=== PATIENT | male | born 1955 | race Two or more races ===

== ENCOUNTER 2018-10-23 12:22 | Emergency (ER) | payer OTHER ==
[~2018-10-23] VITALS: Ht 177.8 cm; Wt 66.2 kg
[2018-10-23 12:40] VITALS: BP 150/80
--- NOTE | 2018-10-23 13:53 | Emergency Room Report ---
History of Present Illness General Chief Complaint: Malfunctioning Gastric Tube Source: EMS, Caregiver Present Illness HPI Patient apparently pulled out his PEG tube. A Medina was inserted. He has upper limb spasticity and may have caught the tube in his hand inadvertently. No fevers, vomiting, cough H/O DM H/O trach H/O functional quadriplegia Allergies: Coded Allergies: HEPARIN (Verified Allergy, Unknown, 10/23/18) Patient History Limited by: medical condition Past Medical History: see triage record, DM, HTN Past Surgical History: other - trach/G tube Social History Narrative SNF Reviewed Nursing Documentation: PMH: Agreed; PSxH: Agreed Nursing Documentation-PMH Past Medical History: No History, Except For Hx Hypertension: Yes Hx Diabetes: Yes Review of Systems All Other Systems: limited Physical Exam Vital Signs Date Time Temp Pulse Resp B/P (MAP) Pulse Ox O2 Delivery O2 Flow Rate FiO2 10/23/18 12:24 97.3 78 20 150/80 98 Nasal Cannula 3.0 General Appearance: no apparent distress, other - eyes open, Chronically Ill Eyes: bilateral eye normal inspection, bilateral eye PERRL ENT: moist mucus membranes Neck: tracheotomy Respiratory: chest non-tender, lungs clear, normal breath sounds Cardiovascular #1: regular rate, rhythm Cardiovascular #2: 2+ radial (R) Gastrointestinal: normal inspection, normal bowel sounds, non tender, soft, other - gastrostomy tube site without inflammation Musculoskeletal: other - flexion contractures and atrophy Neurologic: alert - not respond to verbal , motor weakness Psychiatric: other - vegetative state Skin: other - decub protectors LE Procedures Additional Procedure Procedure Narrative G tube replacement: Medina removed. G tube inserted with ease. Aspiration of stomach contents. Medical Decision Making Diagnostic Impression: Primary Impression: Malfunction of gastrostomy tube ER Course Patient post PEG tube removal. Needs G tube replacement. G tube placed. Xray confirmation. Patient stable for outpatient observation and treatment. Other X-Ray Diagnostic Results Other X-Ray Diagnostic Results : X-Ray ordered: abd # of Views/Limited Vs Complete: 1 View Indication: Other EP Interpretation: Yes Interpretation: nonspecific bowel gas, no sbo, other - tube in place Impression: Other Electronically Signed by: Electronically signed by Kimani Frias MD Last Vital Signs Date Time Temp Pulse Resp B/P (MAP) Pulse Ox O2 Delivery O2 Flow Rate FiO2 11/27/18 15:35 97.3 67 20 112/79 98 Nasal Cannula 3.0 Status: improved Disposition: XFER SNF Condition: Improved Kimani Frias MD Oct 23, 2018 13:53
--- NOTE | 2018-10-23 14:02 | Diagnostic Imaging Report ---
Indication: Post gastrostomy replacement Technique: Supine view of the abdomen after injection of water-soluble contrast into gastrostomy Comparison: none Findings: Contrast opacifies the stomach. No contrast extravasation is demonstrated. The bowel gas pattern is unremarkable. Ventriculoperitoneal shunt tubing traverses the right side of the abdomen, distal end coiled within the pelvis. Impression: Satisfactory position of gastrostomy tube
[2018-10-23 15:06] VITALS: BP 112/79
[2018-10-23 15:35] VITALS: BP 112/79
== END 2018-10-23 15:39 | disposition home or self-care (01) ==
LOC: EDBD 12:22 → EMR 13:10
DX: Z43.1 Encounter for attention to gastrostomy (principal); R53.2 Functional quadriplegia; Z93.0 Tracheostomy status; I10 Essential (primary) hypertension; Z88.8 Allergy status to other drugs, medicaments and biological substances
CPT/HCPCS: 43760; 74018; 99284; Q9963; Z7502